=== PATIENT | male | born 1980 | race Hispanic/Latino ===

== ENCOUNTER 2021-09-24 12:51 | Emergency (ER) | payer SELFPAY ==
[2021-09-24 13:03] VITALS: BP 135/91; PULSE 68; RESP 16; TEMP 36.9; O2SAT 99
--- NOTE | 2021-09-24 13:05 | ED.SKABFB ---
HPI - Skin/Abscess/Foreign Bdy General Chief complaint: Wound/Laceration Stated complaint: non healing wound Time Seen by Provider: 09/24/21 13:19 Source: patient Mode of arrival: ambulatory Limitations: no limitations History of Present Illness HPI narrative: 41-year-old male presented for complaint of puncture wound to the right foot after stepping on a nail today about 30 minutes prior to arrival. Bleeding is controlled. Ambulating with a limp. He did not clean it or applied any antiseptic prior to arrival. Denies decreased range of motion to the foot, numbness, tingling, or weakness. Rates pain 2/10. He is unsure of his last tetanus. Requests dtr help with [place] translation. complaint: rash Related Data Home Medications Medication Instructions Recorded Confirmed Unknown Prediabetic Med. 09/24/21 aspirin 81 mg tablet,delayed tablet 09/24/21 release atenolol 50 mg-chlorthalidone 25 tablet 09/24/21 mg tablet atorvastatin 20 mg tablet tablet 09/24/21 chlorthalidone 25 mg tablet tablet 09/24/21 loratadine 10 mg tablet tablet 09/24/21 Allergies Allergy/AdvReac Type Severity Reaction Status Date / Time No Known Allergies Allergy Verified 09/24/21 13:02 Review of Systems Review of Systems: CONSTITUTIONAL: Denies body aches, fever, chills, or sweats. CARDIOVASCULAR: Denies chest pain, palpitations, or edema. RESPIRATORY: Denies dyspnea. SKIN: reports foot wound MUSCULOSKELETAL: Denies back pain, joint pain, or myalgia. NEUROLOGIC: Denies headache, numbness, tingling, or weakness. PMFSH Comments At time of signature, I have reviewed and agree with nursing past medical, surgical, social and family history unless otherwise noted. Please see nursing chart for further information. There is no relevant family history pertinent to the presenting complaint Exam Narrative: GENERAL: Well-appearing ENT: Mucous membranes moist. Oropharynx without edema, erythema or lesions. CHEST: Clear to auscultation. No respiratory distress. HEART: Regular rate and rhythm. SKIN: Warm, dry. Right foot puncture wound to plantar surface medial aspect of mid foot. Bleeding controlled. full ROM to foot. No point tenderness with palpation of metatarsals, no swelling or bruising. NEURO: Alert and oriented x3. PSYCH: Normal mood and affect Course Course Emergency Course: Patient is aware of diagnosis, understands and agrees to treatment plan. Anticipatory guidance given. Patient agrees to follow-up as directed and is aware of reasons to seek care at the emergency department. Portions of this record may have been created with voice recognition software Level of Care: Express Care Visit Vital Signs Vital signs: Vital Signs Temperature 98.5 F 09/24/21 13:03 Pulse Rate 68 09/24/21 13:03 Respiratory Rate 16 09/24/21 13:03 Blood Pressure 135/91 H 09/24/21 13:03 Pulse Oximetry 99 09/24/21 13:03 Oxygen Delivery Room Air 09/24/21 13:03 Temperature 98.5 F 09/24/21 13:03 Pulse Rate 68 09/24/21 13:03 Respiratory Rate 16 09/24/21 13:03 Blood Pressure 135/91 H 09/24/21 13:03 Pulse Oximetry 99 09/24/21 13:03 Oxygen Delivery Room Air 09/24/21 13:03 Reviewed MDM - Skin/Abscess/Foreign Bdy MDM Narrative Medical decision making narrative: Wound cleansed thoroughly with primaderm and technicare with water. Minimal pain to site, no indication for xray; pt is ambulatory with steady gait and says pain is minimal. Tetanus updated. Advised supportive measures and signs/symptoms to go to the ER. Pt is appropriate for outpt treatment and f/u. Instructed patient to go to nearest ER immediately for any worsening symptoms including but not limited to: fever, pain, pus, dizziness, chest pain, trouble breathing, or any symptoms concerning to the patient. Differential Diagnosis Differential diagnosis: Likely abscess of skin or subcutaneous tissue, urticaria, herpes zoster, cellulitis, contact derm
[2021-09-24] MEDS: TETANUS,DIPHTHERIA,AC PERTUSSIS ADULT (0.5 ML) BOOSTRIX IM (13:30)
== END 2021-09-24 13:57 | disposition home or self-care (01) ==
PROVIDERS: Emergency Provider Nurse Practitioner Family; PCP Registered Nurse
DX: S91.331A Puncture wound without foreign body, right foot, initial encounter (principal); W45.0XXA Nail entering through skin, initial encounter; Z23 Encounter for immunization; E78.00 Pure hypercholesterolemia, unspecified; I10 Essential (primary) hypertension; Z79.82 Long term (current) use of aspirin
CPT/HCPCS: 90471; 90715; 99203; G0463